=== PATIENT | male | born 1960 | race Caucasian/White ===

== ENCOUNTER → 2017-12-08 16:54 | Outpatient (CLI) | payer BC, SELFPAY ==
--- NOTE | 2017-12-08 16:59 | RAD_ITS ---
STUDY: X-RAY - CERVICAL SPINE REASON FOR EXAM: Male, 57 years old. Headaches TECHNIQUE: 7 view(s) of the cervical spine were obtained. COMPARISON: None FINDINGS: Normal anterior atlantoaxial articulation. Normal odontoid process. Normal cervical lordosis. Normal vertebral bodies and endplates. Normal disc space heights. Normal visualized intervertebral neuroforamina. The soft tissue structures are unremarkable. RAD/Cerv Spine Obl/Flex/Ext Comp IMPRESSION: Normal x-ray examination of the visualized cervical spine. Electronically Signed: Peng Vizcaino DO at 21:16 EST Tel [phone], Service support ,
== END ==
PROVIDERS: Family Provider Family Medicine; PCP Family Medicine; Visit Provider Internal Medicine
DX: M54.2 Cervicalgia (principal)
CPT/HCPCS: 72052

== ENCOUNTER → 2018-06-01 12:17 | Outpatient (CLI) | payer BC, SELFPAY ==
[2018-06-01 14:36] LABS: Cholesterol 170 mg/dL (200); High Density Lipoprotein 52 mg/dL; PSA,Total - Annual Screen 0.89 ng/mL (0.00-4.00); Triglycerides 66 mg/dL; Very Low Density Lipoprotein 13 mg/dL (5-40)
== END ==
PROVIDERS: Family Provider Family Medicine; PCP Family Medicine; Visit Provider Internal Medicine Pulmonary Disease
DX: Z00.00 Encounter for general adult medical examination without abnormal findings (principal)
CPT/HCPCS: 36415; 80061; 84153; G0103

== ENCOUNTER → 2019-12-27 09:14 | Outpatient (CLI) | payer BC, SELFPAY ==
[2019-12-27 10:45] LABS: Anion Gap 7 (5-15); BUN 19 mg/dL (7-18); BUN/Creat Ratio 17.3 RATIO (10-20); Calcium,Total 9.6 mg/dL (8.5-10.1); Chloride 102 mmol/L (98-107); Cholesterol 177 mg/dL (200); EST Glomerular Filtration Rate 73 mL/min (>60); Est Glom Filt Rate - Afr Amer 89 mL/min (>60); Glucose 87 mg/dL (74-106); High Density Lipoprotein 54 mg/dL; PSA,Total - Annual Screen 0.95 ng/mL (0.00-4.00); Potassium 4.3 mmol/L (3.5-5.1); Sodium Level 141 mmol/L (136-145); Triglycerides 85 mg/dL; Very Low Density Lipoprotein 17 mg/dL (5-40)
[2019-12-27 11:05] LABS: Vitamin D,25 Hydroxy 32.3 ng/mL
== END ==
PROVIDERS: PCP Family Medicine; Referring Provider Family Medicine; Visit Provider Family Medicine
DX: Z00.00 Encounter for general adult medical examination without abnormal findings (principal)
CPT/HCPCS: 36415; 80048; 80061; 82306; 84153; G0103

== ENCOUNTER 2020-03-10 14:52 | Emergency (ER) | payer BC, SELFPAY ==
[2020-03-10 14:53] VITALS: BP 112/69; PULSE 69; RESP 16; TEMP 36; O2SAT 100; BMI 21.5
--- NOTE | 2020-03-10 15:07 | ED.DCSUM_ITS ---
History of Present Illness Chief Complaint: Laceration Informant: Patient Onset: Today Narrative: Patient sustained a left thumb laceration while using a drill. He washed the wound at home. He notes motion of the thumb appears normal. Tetanus is up-to-date. Past Medical History - Allergies and Home Meds Allergies/Adverse Reactions: Allergies Quinolones Allergy (Verified 03/10/20 14:53) Pain in joints Sulfa (Sulfonamide Antibiotics) Allergy (Verified 03/10/20 14:53) Rash Primary Care Physician: Gómez Oliveira MD [STAFF PHYSICIAN] - Review of Systems General: Denies: Chills, Fever, Sweats Eyes: Denies: Visual changes - bilaterally, Diplopia ENT: Denies: Rhinorrhea, Sore throat Cardiovascular: Denies: Chest pain, Palpitations Respiratory: Denies: Dyspnea, Cough, Dyspnea on exertion Gastrointestinal: Denies: Abdominal pain, Nausea, Vomiting, Diarrhea, Melena, Hematochezia Genitourinary: Denies: Dysuria, Hematuria, Frequency Musculoskeletal: Reports: Extremity Pain - see HPI. Denies: Back pain Skin: Denies: Rash, Wounds Neurological: Denies: Headache, Weakness, Numbness Physical Exam Vital Signs/Narrative: Vital Signs Temp Pulse Resp BP Pulse Ox 03/10/20 14:53 96.8 F L 69 16 112/69 100 Inital Vital Signs reviewed: Yes General: Well nourished, Well developed, No Acute Distress Head: Normocephalic, Atraumatic Eyes: Perrl, EOMI ENT: Moist mucous membranes, No rhinorrhea Neck: Supple, Nontender Cardiovascular: Regular rate, Regular rhythm, No murmurs Respiratory: No distress, CTA bilaterally, Chest nontender Abdomen: Soft, Nontender, Nondistended, Normal bowel sounds Back: Nontender, Normal Inspection Extremities: Nontender, No edema Skin: No rash, Trauma - There is about a 4 cm laceration over the dorsum of the left thumb extending towards the lateral aspect. He has strong extension. Good opposition. Neurovascularly intact distally. Inside the wound there appears to be a severed abductor pollicis longus tendon. Neurological: Alert, Oriented x3, Cranial nerves II-XII grossly intact, Normal Strength, Normal Sensation Psychological: Normal affect, Normal Mood Diagnostic/Tx/Re-eval - Medical Decision Making Wound was locally anesthetized using 1% lidocaine. Was washed with Shur-Clens and explored. Noted lacerated tendon which I believed to be the abductor pollicis longus. I spoke with Dr. Oliveira from [employer]. The wound was sutured after washing with Shur-Clens. There is a small venule that was oversewed which to stop the bleeding. A total of 5 simple erupted 4-0 Ethilon sutures were used to close the wound. It was dressed and a thumb spica splint applied. He will be placed on Keflex. He will be seen in the office the next 1 or 2 days. ED Disposition - Plan for ED Patient: Disposition: Home or Assisted Living Diagnosis: Hand laceration involving tendon Instructions: ED Laceration Hand, ED TENDON LACERATION Prescriptions: Cephalexin [Keflex] 500 mg PO Q6 #20 cap Transmission Status: Pending to [facility] Referrals: Gómez Oliveira MD [STAFF PHYSICIAN] - As soon as possible (call on Wednesday to arrange early follow up)
[2020-03-10 16:06] VITALS: RESP 16
== END 2020-03-10 16:07 | disposition home or self-care (01) ==
LOC: ED 16:02
PROVIDERS: Emergency Provider Emergency Medicine; PCP Family Medicine
DX: S66.222A Laceration of extensor muscle, fascia and tendon of left thumb at wrist and hand level, initial encounter (principal); S61.012A Laceration without foreign body of left thumb without damage to nail, initial encounter; W29.8XXA Contact with other powered hand tools and household machinery, initial encounter; Y93.9 Activity, unspecified; Y92.9 Unspecified place or not applicable
CPT/HCPCS: 12002; 99284

== ENCOUNTER 2020-07-03 08:30 | Outpatient (RCR) | payer BC, SELFPAY ==
[2020-03-11 16:50] VITALS: BMI 22.2
--- NOTE | 2020-05-03 07:14 | HP.OTEVAL_ITS ---
Patient's Visit Information GRAEME ODOM is a 59 year old M, referred to Occupational Therapy by Dr. Fernando Laurent MD, with a diagnosis of extensor tendon laceration of left thumb. Date of Evaluation: 05/02/20 Occupational Therapist: Destinee Chi, OTR/L, CHT - Subjective This 59 year old male was seen for OT eval 7 weeks after a left thumb extensor tendon EPL repaiexploration of radial sensory nerve with neurolysis - advancement flap closure. and . pt states he underwent sx 1 week after drill accident. Pt reports 50% tear of tendon that needed repaired. pt arrives with orthois on. Pt states on 04/26/20 he was seen by ortho who instructed pt in IP blocking, scar mtg and wrist ROM. pt demo ex ind. for this therapist. Order from Dr. Laurent inticates wean from splint as tolerated but use at night for 6-8 weeks. pt would like to return to PLOF - Pain left thumb 0 Pain Intensity Range: 0, 3 - ROM MP: right 45* left 40* IP: right 75* left 35* Radial Abduction: WFL Palmar Abduction: WFL Opposition: left 6 right 10 ROM Comments: pt demo with initiation of good motion since instructed by on 04/26/20 - Strength Strength Comments: will test later date - Edema Wrist: right 6.3/4 7.5 Other: right 7 left 8 - Sensation Thumb: right 2.83 left 2.83 Index: right 2.83 left 2.83 Middle: right 2.83 left 2.83 Ring: right 2.83 left 2.83 Little: right 2.83 left 2.83 Sensation Comments: pt reports radial side of thumb feels different and textures feel off from unaffected hand- indication of exploration of radial sensory nerve with neurolysis during repair of EPL - Quick DASH-Disab of Arm,Shoulder& Hand Quick DASH Score: 57.8925 - Goals Goal:100% adherence to protocol: Yes Comment: extensor tendon protocol EPL Goal:Daily scar massage when approriate: Yes Goal:ROM equal to unaffected hand: Yes Goal:Horticultural Farmer/Pinch strength at least 75% of unaffected hand: Yes Goal:No pain with affected hand use: Yes Goal:PIP Circumferences equal to unaffected hand: Yes Goal:Full use of affected hand in daily activities including: Yes Goal:Decrease scar hypersensitivity: Yes - Rehabilitation General Assessment: pt 7weeks s/p left thumb extensor tendonEPL repair, explorationof radial sensory nerve with neurolysis, advancemdment flap closure. Pt demo with scar hypertrophy, edema, limited ROM and weakness due to healing tendon structure. pt demo sensory disruption on radial side of left thumb. pt limited with his PLOF of ADLs and IADLS. pt would benefit from skilled OT services 1x week for 6 weeks to assist pt in reaching full rehab potential. Today therapist review ROM ex, scar mtg (ed. on scar gel for night use), wrist and sensory re-ed to assist with median nerve recovery. therapy will progress pt to PRE when protocol allows. pt to wean from orthosis as tolerated but use for night 6-8 weeks. pt demo understanding and agree to POC. Rehabilitation Potential: Excellent - Anticipated Interventions A/AAROM/PROM, Strengthening, Scar Care, Sensory Retraining, Modalities, Orthoses - Visit Plan Frequency: 1x/Week Duration: 6 Weeks TEXT: Thank you for the opportunity to evaluate your patient. For Medicare and Medicare HMO plans, please review the plan of care and approve it. It will need to be FAXED BACK to us at [phone] for Medicare purposes. Please let me know if there are questions or concerns regarding this plan of care. Physician Signature: Date:
== END 2020-07-03 19:00 | disposition home or self-care (01) ==
LOC: OT 08:30
PROVIDERS: PCP Family Medicine; Referring Provider Orthopaedic Surgery; Visit Provider Orthopaedic Surgery
DX: S66.822D Laceration of other specified muscles, fascia and tendons at wrist and hand level, left hand, subsequent encounter (principal)
CPT/HCPCS: 97035; 97140; 97166; 97530

== ENCOUNTER 2020-10-01 11:00 | Outpatient (RCR) | payer BC, SELFPAY ==
[2020-03-11 16:50] VITALS: BMI 22.2
== END 2020-10-01 23:59 ==
LOC: IMMUN 11:00
PROVIDERS: PCP Family Medicine; Visit Provider Family Medicine
DX: Z23 Encounter for immunization (principal)
CPT/HCPCS: 0011A; 0012A; 91301

== ENCOUNTER → 2021-05-28 10:06 | Outpatient (CLI) | payer BC, SELFPAY | PROVIDERS: PCP Family Medicine; Referring Provider Internal Medicine Pulmonary Disease; Visit Provider Internal Medicine Pulmonary Disease | DX: Z20.822 Contact with and (suspected) exposure to COVID-19 (principal); R05 Cough | CPT/HCPCS: 87635; C9803; U0005; U0003 ==

== ENCOUNTER → 2021-09-24 16:35 | Outpatient (CLI) | payer BC, SELFPAY ==
[2021-09-24 18:04] LABS: Vitamin D,25 Hydroxy 22.5 ng/mL
[2021-09-24 18:12] LABS: Anion Gap 7 (5-15); BUN 19 mg/dL (7-18); BUN/Creat Ratio 14.8 RATIO (10-20); Calcium,Total 9.4 mg/dL (8.5-10.1); Chloride 102 mmol/L (98-107); Cholesterol 190 mg/dL (200); Creatinine, Serum 1.28 mg/dL (0.70-1.30); EST Glomerular Filtration Rate 61 mL/min (>60); Est Glom Filt Rate - Afr Amer 74 mL/min (>60); Glucose 94 mg/dL (74-106); High Density Lipoprotein 52 mg/dL; PSA,Total - Annual Screen 0.82 ng/mL (0.00-4.00); Potassium 3.6 mmol/L (3.5-5.1); Sodium Level 139 mmol/L (136-145); Thyroid Stim Hormone (TSH) 0.57 uIU/mL (0.358-3.74); Triglycerides 196 mg/dL; Very Low Density Lipoprotein 39 mg/dL (5-40)
== END ==
PROVIDERS: PCP Family Medicine; Referring Provider Family Medicine; Visit Provider Family Medicine
DX: Z00.00 Encounter for general adult medical examination without abnormal findings (principal)
CPT/HCPCS: 36415; 80048; 80061; 82306; 84153; 84403; 84443; G0103

== ENCOUNTER → 2023-07-02 | Outpatient (CLI) | payer BC, SELFPAY ==
[2023-07-02 15:39] LABS: Anion Gap 4 (5-15); BUN 19 mg/dL (7-18); BUN/Creat Ratio 16.8 RATIO (10-20); Calcium,Total 9.5 mg/dL (8.5-10.1); Chloride 104 mmol/L (98-107); Cholesterol 174 mg/dL (200); Creatinine, Serum 1.13 mg/dL (0.70-1.30); EST Glomerular Filtration Rate 70 mL/min (>60); Est Glom Filt Rate - Afr Amer 85 mL/min (>60); Glucose 84 mg/dL (74-106); High Density Lipoprotein 55 mg/dL; PSA,Total- Diagnostic 1.25 ng/mL (0.0-4.0); Potassium 3.8 mmol/L (3.5-5.1); Sodium Level 139 mmol/L (136-145); Triglycerides 66 mg/dL; Very Low Density Lipoprotein 13 mg/dL (5-40)
== END | disposition home or self-care (01) ==
LOC: MTLAB 13:07
PROVIDERS: PCP Family Medicine; Referring Provider Family Medicine; Visit Provider Family Medicine
DX: Z00.00 Encounter for general adult medical examination without abnormal findings (principal)
CPT/HCPCS: 36415; 80048; 80061; 84153

== ENCOUNTER → 2024-04-24 | Outpatient (CLI) | payer BC, SELFPAY ==
--- NOTE | 2024-04-24 13:40 | RAD_ITS ---
STUDY: X-RAY - CERVICAL SPINE REASON FOR EXAM: Male, 63 years old. CERVICALGIA following a neck injury. TECHNIQUE: 7 view(s) of the cervical spine were obtained including oblique views. COMPARISON: Comparison is made with prior study. December 08, 2017. FINDINGS: Normal anterior atlantoaxial articulation. Normal odontoid process. Normal cervical lordosis. Normal vertebral bodies and endplates. Mild degree of disc space narrowing at the C6-C7 level. Normal visualized intervertebral neuroforamina. The soft tissue structures are unremarkable. RAD/Cerv Spine Obl/Flex/Ext Comp IMPRESSION: Mild degree of disc space narrowing at the C6-C7 level. Electronically Signed: Amanuel Fair MD at 15:01 EDT ,
== END | disposition home or self-care (01) ==
PROVIDERS: PCP Family Medicine; Referring Provider Family Medicine; Visit Provider Family Medicine
DX: M54.2 Cervicalgia (principal)
CPT/HCPCS: 72052

== ENCOUNTER → 2024-06-23 | Outpatient (CLI) | payer BC, SELFPAY ==
--- NOTE | 2024-06-23 07:50 | VDLE_ITS ---
Reason For Study: LLE Edema RIGHT LEFT CFV is compressible, spontaneous, phasic, GSV is normal. competent and demonstrates normal CFV is compressible, spontaneous, phasic, augmentation. competent, and demonstrates normal Procedure augmentation. This is a venous duplex using B-mode, color FV is compressible, spontaneous, phasic, flow and spectral Doppler. competent and demonstrates normal Exam performed in department. augmentation. The exam was diagnostic. POP V is compressible, spontaneous, phasic, competent and demonstrates normal augmentation. T/P Trunk is compressible. PTV is compressible. LT PerV is compressible. VL/Venous Duplex US, Unilateral Interpretation Summary Deep veins of the left lower extremity are patent and compressible segmentally. There is no evidence of left lower extremity deep vein thrombosis. Valvular competence appears intac t within the proximal deep venous system on the left . The left great saphenous vein appears patent a nd compressible segmentally. The right common femoral vein is patent and compressible . Ordering Physician: Armando Amezquita Referring Physician: Armando Amezquita Performed By: David Valdez, YANNICK
== END | disposition home or self-care (01) ==
LOC: CVS 07:49
PROVIDERS: PCP Family Medicine; Referring Provider Family Medicine; Visit Provider Family Medicine
DX: M79.662 Pain in left lower leg (principal); R60.0 Localized edema
CPT/HCPCS: 93971

== ENCOUNTER → 2025-04-20 | Outpatient (CLI) | payer BC, SELFPAY ==
[2025-04-20 12:21] LABS: Anion Gap 10 (5-15); BUN 20 mg/dL (4-19); BUN/Creat Ratio 18.4 RATIO (10-20); Calcium,Total 10.4 mg/dL (7.6-11.0); Carbon Dioxide 28.8 mmol/L (21.0-32.0); Chloride 103 mmol/L (98-108); Cholesterol 199 mg/dL (<=200); Glucose 99 mg/dL (70-99); Low Density Lipoprotein Calc. 130 mg/dL; PSA,Total - Annual Screen 1.74 ng/mL (0.02-4.00); Potassium 4.5 mmol/L (3.3-5.1); Triglycerides 113 mg/dL; Very Low Density Lipoprotein 23 mg/dL (5-40); cholesterol:hdl ratio screen 4.26
== END | disposition home or self-care (01) ==
LOC: MTLAB 08:11
PROVIDERS: PCP Family Medicine; Referring Provider Family Medicine; Visit Provider Family Medicine
DX: Z00.00 Encounter for general adult medical examination without abnormal findings (principal)
CPT/HCPCS: 36415; 80048; 80061; 84153; G0103